=== PATIENT | male | born 1965 | race Caucasian/White ===

== ENCOUNTER 2016-07-25 18:08 | Emergency (ER) | payer MEDICAID ==
[~2016-07-25] VITALS: Ht 180.3 cm; Wt 81.6 kg
[2016-07-25 19:43] LABS: Albumin 3.5 g/dL (3.4-5.0); Amylase 82 U/L (25-115); Anion Gap 15 (5-15); Blood Urea Nitrogen 11 mg/dL (7-18); Calcium 9.9 mg/dL (8.5-10.1); Carbon Dioxide 21 mmol/L (21-32); Chloride 101 mmol/L (98-107); GFR African American 81 mL/min; GFR Non-African American 67 mL/min; Glucose 215 mg/dL (74-106); Potassium 3.6 mmol/L (3.5-5.1); Sodium 137 mmol/L (136-145)
[2016-07-25 19:49] LABS: Hematocrit 54.5 % (41.0-53.0); Hemoglobin 18.6 g/dL (13.5-17.5); Mean Corpuscular Hemoglobin 31.6 pg (28.0-32.0); Mean Corpuscular Hgb Conc. 34.1 g/dL (32.0-36.0); Mean Corpuscular Volume 92.7 fL (80.0-100.0); Mean Platelet Volume 8.3 fL (7.4-10.4); Platelet Count (auto) 412 10^3/uL (140-450); Red Cell Distribution Width 13.2 % (11.6-16.0); SUSPECT VIEW TRANSMISSION; White Blood Cell 19.3 10^3/uL (4.4-10.8)
[2016-07-25 19:52] LABS: Alkaline Phosphatase 80 U/L (45-117); Aspartate Aminotransferase 31 U/L (15-37); Total Protein 7.5 g/dL (6.4-8.2)
[2016-07-25 19:54] LABS: Metamyelocytes % 0; Myelocytes % 0; Promyelocytes % 0; Reactive Lymphocytes 0
[2016-07-25 20:10] LABS: Platelet Estimate Adequate; RBC Morphology Normal
[2016-07-25] MEDS ORDERED: HYDROmorphone HCL 2 MG/ML VL IV ONE ×3 (20:15→23:15)
[2016-07-25] MEDS ORDERED: ONDANSETRON HCL 4 MG/2 ML VIAL IV ONE (20:15)
[2016-07-25] MEDS ORDERED: SODIUM CHLORIDE 0.9% 1,000 ML IV ONE (20:45)
[2016-07-25] MEDS ORDERED: FAMOTIDINE (10MG/ML) 2ML VL IV ONE (21:30)
[2016-07-25 21:36] LABS: Lactic Acid w/Reflex 2.4 mmol/L (0.4-2.0)
[2016-07-25] MEDS ORDERED: IOHEXOL 300 MG/ML 100ML BOTTLE IJ ONE (21:37)
[2016-07-25 22:00] LABS: REFLEX LACTIC ACID YES OR NO YES
[2016-07-25] MEDS ORDERED: cefTRIAXone 1GM/50ML D5W 50 ML IV ONE (23:15)
[2016-07-25] MEDS ORDERED: VANCOMYCIN 1GM/250ML D5W 250 ML IV ONE (23:15)
[2016-07-25 23:37] LABS: Allen Test Yes; Base Excess -4.5 mmol/L (-2.0-2.0); Blood 02Sat 90.9 % (96-100); Blood COHb 0.3 % (0.5-1.5); Blood MetHb 0.3 % (0.0-1.5); HCO3 20.5 mmol/L (22-26.0); MODE NASAL CANNULA; O2Hb 90.4 % (94.0-97.0); PCO2 38.5 mmHg (35.0-45.0); PCO2(T) 38.5 mmHg (35.0-45.0); PO2 63.8 mmHg (80.0-100.0); PO2(T) 63.8 mmHg (80.0-100.0); Sample Type Arterial; pH 7.345 (7.350-7.450)
[2016-07-25] MEDS ORDERED: SUCCINYLCHOLINE CHLORIDE 20 MG/ML 10ML VIAL IV ONE (23:45)
[2016-07-25] MEDS ORDERED: ETOMIDATE (2MG/ML) 20ML VIAL IV ONE (23:45)
[2016-07-25] MEDS ORDERED: MIDAZOLAM DRIP 100 mg/100mL NS 100 ML IV ONE (23:48)
[2016-07-26] MEDS: MIDAZOLAM DRIP 100 mg/100mL NS 100 ML IV SCH ×2 (00:25→01:38)
[2016-07-26] MEDS ORDERED: fentaNYL Drip 2500mCg/250mlNS 250 ML IV ONE (00:27)
[2016-07-26] MEDS ORDERED: fentaNYL Drip 2500mCg/250mlNS 250 ML IV SCH (00:35)
[2016-07-26] MEDS ORDERED: NOREPINEPHRINE BITARTRATE 250 ML IV ONE (00:48)
[2016-07-26] MEDS ORDERED: PROPOFOL 100 ML IV SCH (00:48)
[2016-07-26] MEDS ORDERED: PROPOFOL 100 ML IV ONE ×2 (00:48)
[2016-07-26] MEDS ORDERED: SUCCINYLCHOLINE CHLORIDE 20 MG/ML 10ML VIAL IV ONE (01:15)
[2016-07-26] MEDS ORDERED: metroNIDAZOLE 500MG/100ML 100 ML IV ONE (02:15)
[2016-07-26] MEDS ORDERED: NOREPINEPHRINE BITARTRATE 250 ML IV SCH (02:15)
[2016-07-26 02:56] LABS: Allen Test Yes; Base Excess -8.3 mmol/L (-2.0-2.0); Blood 02Sat 96.9 % (96-100); Blood COHb 0.2 % (0.5-1.5); Blood MetHb 0.4 % (0.0-1.5); HCO3 16.1 mmol/L (22-26.0); HHb 3.1 % (0.0-5.0); MODE VENT - A/C; O2Hb 96.3 % (94.0-97.0); PCO2 32.1 mmHg (35.0-45.0); PCO2(T) 32.1 mmHg (35.0-45.0); Sample Type Arterial; pH 7.318 (7.350-7.450)
[2016-07-26] MEDS ORDERED: SODIUM CHLORIDE 0.9% 1,000 ML IV ONE ×2 (03:30→04:45)
[2016-07-26 04:29] VITALS: BP 78/60
[2016-07-26] MEDS ORDERED: PHENYLEPHRINE INJ 20 MG in SODIUM CHL 0.9% 250 ML IV SCH (04:41)
[2016-07-26] MEDS ORDERED: PHENYLEPHRINE IV 250 ML IV ONE (04:42)
[2016-07-26] MEDS ORDERED: SODIUM CHLORIDE 0.9% 500 ML IV ONE (04:45)
[2016-07-26] MEDS ORDERED: ACETAMINOPHEN 650 MG RECT SUPP PR ONE (04:45)
== END 2016-07-26 05:09 | disposition short-term general hospital (02) ==
LOC: EDBD 18:08 → ER 18:08
DX: A41.9 Sepsis, unspecified organism (principal); J98.2 Interstitial emphysema; K66.8 Other specified disorders of peritoneum; J90 Pleural effusion, not elsewhere classified; K44.9 Diaphragmatic hernia without obstruction or gangrene; R18.8 Other ascites; K22.0 Achalasia of cardia
CPT/HCPCS: 31500; 36415; 36600; 51702; 71010; 71260; 74176; 80053; 80307; 82150; 82805; 83605; 83690; 84484; 85007; 85027; 87040; 93005; 94002; 96361; 96365; 96366; 96367; 96368; 96375; 99285; J0330; J0696; J1170; J2370; J2405; J2704; J3010; J3370; J3490; J7030; Q9967